=== PATIENT | male | born 1965 | race Caucasian/White ===

== ENCOUNTER 2024-02-27 13:35 | Inpatient (IN) | payer MEDICAID, OTHER ==
[~2024-02-27] VITALS: Ht 180.3 cm; Wt 89.4 kg
[2024-02-27 14:37] LABS: Urine Bacteria MANY /hpf (None Seen); Urine Blood 3+ /uL (Negative); Urine Clarity Ex.Turbid (Clear); Urine Color Light-Brown (Yellow); Urine Mucus FEW (None Seen); Urine Protein, UAD 2+ (Negative); Urine Specific Gravity 1.017 (1.001-1.035); Urine Sperm PRESENT /hpf (None Seen); Urine Urobilinogen Normal (Negative); Urine WBC 1628 /hpf (0 - 3); Urine WBC Clumps PRESENT /hpf (None Seen); Urine pH 5.5 (5.0-9.0)
[2024-02-27 14:44] LABS: Hematocrit 46.2 % (41.0-53.0); Hemoglobin 15.5 g/dL (13.5-17.5); Mean Corpuscular Hemoglobin 30.9 pg (28.0-32.0); Mean Corpuscular Hgb Conc. 33.6 g/dL (32.0-36.0); Mean Corpuscular Volume 92.1 fL (80.0-100.0); Red Blood Cells 5.02 10^6/uL (4.5-5.90)
[2024-02-27 14:51] LABS: White Blood Cell 34.4 10^3/uL (4.4-10.8)
[2024-02-27 14:52] LABS: Basophils % (manual) 0 (0.0-2.0); Blast Cells 0; Eosinophils % (manual) 0 (0-7); Metamyelocytes % 0; Myelocytes % 0; Promyelocytes % 0; Reactive Lymphocytes 0
[2024-02-27 14:55] LABS: Anion Gap 5 (5-15); Carbon Dioxide 29 mmol/L (20-30); Chloride 96 mmol/L (98-107); Potassium 4.4 mmol/L (3.5-5.1); Sodium 130 mmol/L (136-145)
[2024-02-27 15:01] LABS: BUN/Creatinine Ratio 7.3 (10.0-20.0); Blood Urea Nitrogen 9 mg/dL (9-23); Glucose 116 mg/dL (74-106)
[2024-02-27 15:04] LABS: Band Neutrophils % (manual) 1; Lymphocytes % (manual) 4 (10.0-50.0); Monocytes % (manual) 7 (0-12)
[2024-02-27 15:05] LABS: Platelet Estimate Adequate; RBC Morphology Normal
[2024-02-27] MEDS: SODIUM CHLORIDE 0.9% 1,000 ML IV ONE (15:23)
[2024-02-27] MEDS: cefTRIAXone 1GM/50ML D5W 50 ML IV ONE (15:24)
[2024-02-27 15:30] VITALS: PULSE 99; RESP 20; O2SAT 95
[2024-02-27 15:43] LABS: Amphetamine Screen, Urine Pos (NEGATIVE); Barbiturate Scree,Urine Neg (NEGATIVE); Benzodiazephine Screen, Urine Neg (NEGATIVE)
[2024-02-27 15:44] LABS: Cannabinoid Screen, Urine Neg (NEGATIVE); Cocaine Screen, Urine Neg (NEGATIVE); Opiate Scree,Urine Neg (NEGATIVE); Phencyclidine Screen, Urine Neg (NEGATIVE)
[2024-02-27] MEDS: metroNIDAZOLE 500MG/100ML 100 ML IV ONE (15:49)
[2024-02-27] MEDS ORDERED: ONDANSETRON HCL 4 MG/2 ML VIAL IV PRN (19:00)
[2024-02-27] MEDS: LACTATED RINGER'S 1,000 ML IV ONE (19:30)
[2024-02-27] MEDS: SODIUM CHLOR 0.9% PF (SALINE LOCK) 10ML VIAL/SYR IV SCH (22:08)
[2024-02-28] VITALS (9 sets, daily range): BP systolic 108–143; BP diastolic 52–68; PULSE 60–84; RESP 14–18; TEMP 97.4–100.4; O2SAT 92–98
[2024-02-28] MEDS: ACETAMINOPHEN 325 MG TAB PO PRN (03:48)
[2024-02-28] MEDS: HYDROcodone-ACET 5/325MG TAB PO PRN (03:49)
[2024-02-28 09:00] LABS: Basophils # (auto) 0.1 10 ^3/uL (0-0.2); Basophils % (auto) 0.4 % (0.0-2.0); Eosinophils # (auto) 0.1 10 ^3/uL (0-0.8); Eosinophils % (auto) 0.2 % (0.0-7.0); Hematocrit 39.2 % (41.0-53.0); Hemoglobin 13.6 g/dL (13.5-17.5); Lymphocytes # (auto) 1.4 10 ^3/uL (0.4-5.4); Lymphocytes % (auto) 5.5 % (10.0-50.0); Mean Corpuscular Hemoglobin 31.9 pg (28.0-32.0); Mean Corpuscular Hgb Conc. 34.6 g/dL (32.0-36.0); Monocytes % (auto) 4.1 % (0.0-12.0); Neutrophils # (auto) 22.9 10 ^3/uL (1.6-8.6); Neutrophils % (auto) 89.8 % (37.0-80.0); Red Blood Cells 4.26 10^6/uL (4.5-5.90); White Blood Cell 25.5 10^3/uL (4.4-10.8)
[2024-02-28 09:24] LABS: Alanine Aminotransferase 14 U/L (7-40); Albumin 3.7 g/dL (3.2-4.8); Alkaline Phosphatase 58 U/L (46-116); Anion Gap 3 (5-15); Aspartate Aminotransferase 11 U/L (13-40); BUN/Creatinine Ratio 10.8 (10.0-20.0); Blood Urea Nitrogen 12 mg/dL (9-23); Calcium 8.9 mg/dL (8.7-10.4); Carbon Dioxide 29 mmol/L (20-30); Chloride 102 mmol/L (98-107); Glucose 143 mg/dL (74-106); Magnesium 1.8 mg/dL (1.6-2.6); Potassium 3.9 mmol/L (3.5-5.1); Sodium 134 mmol/L (136-145)
[2024-02-28 09:25] LABS: Total Protein 5.8 g/dL (5.7-8.2)
[2024-02-28 09:26] LABS: Bilirubin, Total 0.5 mg/dL (0.2-1.0)
[2024-02-28] MEDS: ENOXAPARIN SOD 40 MG/0.4 ML SYRINGE SC SCH (11:13)
[2024-02-28] MEDS: cefTRIAXone 1GM/50ML D5W 50 ML IV SCH (11:13)
[2024-02-28] MEDS: SODIUM CHLORIDE 0.9% 1,000 ML IV SCH (16:01)
[2024-02-29 01:00] VITALS: BP 115/60; PULSE 87; RESP 16; TEMP 100.4; O2SAT 93
[2024-02-29 04:56] VITALS: BP 108/66; PULSE 76; RESP 17; TEMP 98.5; O2SAT 98
[2024-02-29 06:03] LABS: Basophils # (auto) 0 10 ^3/uL (0-0.2); Basophils % (auto) 0.2 % (0.0-2.0); Eosinophils # (auto) 0.1 10 ^3/uL (0-0.8); Eosinophils % (auto) 0.5 % (0.0-7.0); Hematocrit 39.5 % (41.0-53.0); Hemoglobin 13.4 g/dL (13.5-17.5); Lymphocytes # (auto) 0.8 10 ^3/uL (0.4-5.4); Lymphocytes % (auto) 5.7 % (10.0-50.0); Mean Corpuscular Hemoglobin 31.2 pg (28.0-32.0); Mean Corpuscular Hgb Conc. 33.9 g/dL (32.0-36.0); Mean Corpuscular Volume 91.9 fL (80.0-100.0); Monocytes % (auto) 7.2 % (0.0-12.0); Neutrophils # (auto) 12.2 10 ^3/uL (1.6-8.6); Neutrophils % (auto) 86.4 % (37.0-80.0); Red Cell Distribution Width 14.1 % (11.8-14.3); White Blood Cell 14.1 10^3/uL (4.4-10.8)
[2024-02-29 06:20] LABS: Alanine Aminotransferase 16 U/L (7-40); Alkaline Phosphatase 70 U/L (46-116); Anion Gap 8 (5-15); Aspartate Aminotransferase 15 U/L (13-40); BUN/Creatinine Ratio 11.4 (10.0-20.0); Blood Urea Nitrogen 10 mg/dL (9-23); Calcium 8.8 mg/dL (8.7-10.4); Carbon Dioxide 26 mmol/L (20-30); Chloride 102 mmol/L (98-107); Glucose 113 mg/dL (74-106); Potassium 3.9 mmol/L (3.5-5.1); Sodium 136 mmol/L (136-145)
[2024-02-29 06:21] LABS: Albumin 3.6 g/dL (3.2-4.8); Bilirubin, Total 0.3 mg/dL (0.2-1.0); Total Protein 6.2 g/dL (5.7-8.2)
[2024-02-29 08:38] VITALS: BP 107/58; PULSE 65; RESP 16; TEMP 98.8; O2SAT 93
[2024-02-29 12:45] VITALS: BP 117/59; PULSE 74; RESP 18; TEMP 98.7; O2SAT 96
[2024-02-29 17:00] VITALS: BP 125/63; PULSE 78; RESP 18; TEMP 99.3; O2SAT 93
[2024-02-29 21:00] VITALS: BP 124/60; PULSE 78; RESP 17; TEMP 101.1; O2SAT 95
[2024-03-01 05:00] VITALS: BP 117/68; PULSE 73; RESP 17; TEMP 98; O2SAT 95
[2024-03-01 06:50] LABS: Basophils # (auto) 0 10 ^3/uL (0-0.2); Basophils % (auto) 0.2 % (0.0-2.0); Eosinophils # (auto) 0.1 10 ^3/uL (0-0.8); Eosinophils % (auto) 0.8 % (0.0-7.0); Hematocrit 40.5 % (41.0-53.0); Lymphocytes # (auto) 1.1 10 ^3/uL (0.4-5.4); Lymphocytes % (auto) 8.8 % (10.0-50.0); Mean Corpuscular Hemoglobin 31.7 pg (28.0-32.0); Mean Corpuscular Hgb Conc. 34.6 g/dL (32.0-36.0); Mean Corpuscular Volume 91.8 fL (80.0-100.0); Monocytes # (auto) 1.2 10 ^3/uL (0-1.3); Monocytes % (auto) 9.6 % (0.0-12.0); Neutrophils # (auto) 10.2 10 ^3/uL (1.6-8.6); Neutrophils % (auto) 80.6 % (37.0-80.0); Red Blood Cells 4.41 10^6/uL (4.5-5.90); Red Cell Distribution Width 13.7 % (11.8-14.3); White Blood Cell 12.7 10^3/uL (4.4-10.8)
[2024-03-01 07:15] LABS: Alanine Aminotransferase 35 U/L (7-40); Albumin 3.9 g/dL (3.2-4.8); Alkaline Phosphatase 111 U/L (46-116); Anion Gap 6 (5-15); Aspartate Aminotransferase 29 U/L (13-40); BUN/Creatinine Ratio 13.1 (10.0-20.0); Bilirubin, Total 0.3 mg/dL (0.2-1.0); Blood Urea Nitrogen 11 mg/dL (9-23); Calcium 9.3 mg/dL (8.7-10.4); Carbon Dioxide 28 mmol/L (20-30); Chloride 101 mmol/L (98-107); Glucose 100 mg/dL (74-106); Potassium 4.2 mmol/L (3.5-5.1); Sodium 135 mmol/L (136-145); Total Protein 6.4 g/dL (5.7-8.2)
[2024-03-01 09:00] VITALS: BP 109/59; PULSE 68; RESP 17; TEMP 98.1; O2SAT 93
[2024-03-01 13:00] VITALS: BP 113/70; PULSE 61; RESP 18; TEMP 98.2; O2SAT 97
[2024-03-01 17:00] VITALS: BP 112/66; PULSE 62; RESP 18; TEMP 97.9; O2SAT 96
[2024-03-01 21:00] VITALS: BP 122/68; PULSE 77; RESP 17; TEMP 99.3; O2SAT 95
[2024-03-02] VITALS (7 sets, daily range): BP systolic 99–125; BP diastolic 53–76; PULSE 58–76; RESP 14–19; TEMP 97.2–99.6; O2SAT 92–95
[2024-03-02 06:19] LABS: Basophils # (auto) 0.1 10 ^3/uL (0-0.2); Basophils % (auto) 0.5 % (0.0-2.0); Eosinophils # (auto) 0.2 10 ^3/uL (0-0.8); Eosinophils % (auto) 1.5 % (0.0-7.0); Hematocrit 42.1 % (41.0-53.0); Hemoglobin 14.5 g/dL (13.5-17.5); Lymphocytes # (auto) 1.1 10 ^3/uL (0.4-5.4); Lymphocytes % (auto) 8.8 % (10.0-50.0); Mean Corpuscular Hemoglobin 31.3 pg (28.0-32.0); Mean Corpuscular Hgb Conc. 34.4 g/dL (32.0-36.0); Mean Corpuscular Volume 90.8 fL (80.0-100.0); Monocytes # (auto) 1.1 10 ^3/uL (0-1.3); Monocytes % (auto) 8.7 % (0.0-12.0); Neutrophils # (auto) 9.7 10 ^3/uL (1.6-8.6); Neutrophils % (auto) 80.5 % (37.0-80.0); Red Blood Cells 4.63 10^6/uL (4.5-5.90); White Blood Cell 12.1 10^3/uL (4.4-10.8)
[2024-03-02 06:41] LABS: Alanine Aminotransferase 35 U/L (7-40); Alkaline Phosphatase 100 U/L (46-116); Anion Gap 9 (5-15); Aspartate Aminotransferase 25 U/L (13-40); BUN/Creatinine Ratio 15.9 (10.0-20.0); Bilirubin, Total 0.4 mg/dL (0.2-1.0); Blood Urea Nitrogen 13 mg/dL (9-23); Calcium 9.5 mg/dL (8.7-10.4); Carbon Dioxide 26 mmol/L (20-30); Chloride 101 mmol/L (98-107); Glucose 123 mg/dL (74-106); Potassium 4.2 mmol/L (3.5-5.1); Sodium 136 mmol/L (136-145); Total Protein 6.5 g/dL (5.7-8.2)
[2024-03-03 01:00] VITALS: BP 145/81; PULSE 75; RESP 22; TEMP 98.1; O2SAT 98
[2024-03-03 05:00] VITALS: BP 110/62; PULSE 67; RESP 18; TEMP 98.3; O2SAT 95
[2024-03-03 06:11] LABS: Basophils # (auto) 0.1 10 ^3/uL (0-0.2); Basophils % (auto) 0.5 % (0.0-2.0); Eosinophils # (auto) 0.2 10 ^3/uL (0-0.8); Eosinophils % (auto) 2.3 % (0.0-7.0); Hematocrit 40.8 % (41.0-53.0); Lymphocytes # (auto) 1.6 10 ^3/uL (0.4-5.4); Lymphocytes % (auto) 14.6 % (10.0-50.0); Mean Corpuscular Hemoglobin 31.2 pg (28.0-32.0); Mean Corpuscular Hgb Conc. 34.3 g/dL (32.0-36.0); Mean Corpuscular Volume 90.9 fL (80.0-100.0); Monocytes # (auto) 1.1 10 ^3/uL (0-1.3); Neutrophils # (auto) 7.7 10 ^3/uL (1.6-8.6); Neutrophils % (auto) 72.6 % (37.0-80.0); Red Blood Cells 4.49 10^6/uL (4.5-5.90); Red Cell Distribution Width 13.8 % (11.8-14.3); White Blood Cell 10.6 10^3/uL (4.4-10.8)
[2024-03-03 06:28] LABS: Alanine Aminotransferase 53 U/L (7-40); Alkaline Phosphatase 91 U/L (46-116); Anion Gap 6 (5-15); Aspartate Aminotransferase 46 U/L (13-40); BUN/Creatinine Ratio 17.4 (10.0-20.0); Blood Urea Nitrogen 15 mg/dL (9-23); Calcium 9.7 mg/dL (8.7-10.4); Carbon Dioxide 29 mmol/L (20-30); Chloride 102 mmol/L (98-107); Glucose 96 mg/dL (74-106); Potassium 4.1 mmol/L (3.5-5.1); Sodium 137 mmol/L (136-145)
[2024-03-03 06:29] LABS: Bilirubin, Total 0.4 mg/dL (0.2-1.0); Total Protein 6.5 g/dL (5.7-8.2)
[2024-03-03 09:01] VITALS: BP 106/64; PULSE 75; RESP 18; TEMP 97.6; O2SAT 93
[2024-03-03 13:19] VITALS: BP 125/68; PULSE 69; RESP 16; TEMP 97.6; O2SAT 95
[2024-03-03 16:45] VITALS: BP 111/63; PULSE 67; RESP 16; TEMP 98.2; O2SAT 95
[2024-03-03] MEDS ORDERED: VANCOMYCIN PER PHARMACY 0 MG IV SCH (17:15)
[2024-03-03] MEDS: VANCOMYCIN 1.75GM/350ML 350 ML IV ONE (18:53)
[2024-03-03 21:00] VITALS: BP 116/75; PULSE 69; RESP 17; TEMP 98; O2SAT 92
[2024-03-03] MEDS: CARISOPRODOL 350 MG TAB PO PRN (23:22)
[2024-03-04 01:00] VITALS: BP 115/61; PULSE 63; RESP 18; TEMP 98.3; O2SAT 95
[2024-03-04] MEDS: VANCOMYCIN 1GM/200ML 200 ML IV SCH (02:28)
[2024-03-04 05:00] VITALS: BP 119/85; PULSE 64; RESP 18; TEMP 98.3; O2SAT 96
[2024-03-04 05:57] LABS: Basophils # (auto) 0 10 ^3/uL (0-0.2); Basophils % (auto) 0.2 % (0.0-2.0); Eosinophils # (auto) 0.2 10 ^3/uL (0-0.8); Eosinophils % (auto) 2.1 % (0.0-7.0); Hematocrit 41.8 % (41.0-53.0); Hemoglobin 14.7 g/dL (13.5-17.5); Lymphocytes # (auto) 1.5 10 ^3/uL (0.4-5.4); Lymphocytes % (auto) 13.7 % (10.0-50.0); Mean Corpuscular Hgb Conc. 35.3 g/dL (32.0-36.0); Mean Corpuscular Volume 90.8 fL (80.0-100.0); Monocytes # (auto) 0.8 10 ^3/uL (0-1.3); Monocytes % (auto) 7.8 % (0.0-12.0); Neutrophils # (auto) 8.1 10 ^3/uL (1.6-8.6); Neutrophils % (auto) 76.2 % (37.0-80.0); Red Cell Distribution Width 13.7 % (11.8-14.3); White Blood Cell 10.6 10^3/uL (4.4-10.8)
[2024-03-04 06:15] LABS: Alanine Aminotransferase 76 U/L (7-40); Albumin 4.1 g/dL (3.2-4.8); Alkaline Phosphatase 85 U/L (46-116); Anion Gap 7 (5-15); Aspartate Aminotransferase 58 U/L (13-40); BUN/Creatinine Ratio 21.3 (10.0-20.0); Bilirubin, Total 0.3 mg/dL (0.2-1.0); Blood Urea Nitrogen 17 mg/dL (9-23); Calcium 9.7 mg/dL (8.7-10.4); Carbon Dioxide 27 mmol/L (20-30); Chloride 103 mmol/L (98-107); Glucose 95 mg/dL (74-106); Potassium 4.4 mmol/L (3.5-5.1); Sodium 137 mmol/L (136-145); Total Protein 6.5 g/dL (5.7-8.2)
[2024-03-04 09:00] VITALS: BP 105/55; PULSE 60; RESP 18; TEMP 98.3; O2SAT 96
[2024-03-04] MEDS ORDERED: CEFP200T15 PO (12:04)
[2024-03-04 12:37] VITALS: BP 106/67; PULSE 60; RESP 20; TEMP 97.9; O2SAT 96
[2024-03-08 12:46] LABS: PSA Free 0.19 ng/mL; Prostate Specific Antigen 4.7 ng/mL (0.0-4.0)
== END 2024-03-04 14:25 | disposition home or self-care (01) | DRG 720 ==
LOC: ER 13:35 → OVERFLOW 18:57 → WEST WING 19:03
PROVIDERS: ADMIT Internal Medicine Pulmonary Disease; ATTEND Internal Medicine Pulmonary Disease
DX: A41.9 Sepsis, unspecified organism (principal); E87.1 Hypo-osmolality and hyponatremia; N10 Acute pyelonephritis; F15.10 Other stimulant abuse, uncomplicated; N45.2 Orchitis; N41.9 Inflammatory disease of prostate, unspecified; N50.3 Cyst of epididymis
CPT/HCPCS: 36415; 74176; 76856; 76870; 80048; 80053; 80307; 81001; 83605; 83735; 84154; 85007; 85025; 85027; 87040; 87077; 87086; 87186; 99291; G0378; J3490